=== PATIENT | female | born 1960 | race Caucasian/White ===

== ENCOUNTER 2016-10-12 08:25 | Day surgery (SDC) | payer MEDICAID ==
[~2016-10-12] VITALS: Ht 162.6 cm; Wt 97.3 kg
[~2016-10-12 08:25] MED LIST: ALBUTEROL0.83 MG/ML IH; ANTIVERT 25MG25 MG PO; ASPIRIN E.C. 8181 MG PO; ATENOLOL; CLOPIDOGREL75 MG PO; CYCLOBENZAPRINE10 MG PO; DALIRESP500 MCG PO; DICLOFENAC SOD75 MG PO; DOXYCYCLINE 10100 MG PO; FLEXERIL 1010 MG/TAB PO; FLOVENT 110MCG7.9 GM IH; FLUOXETINE20 MG PO; FLUTICASON0.05 MG/Ac NS; FUROSEMIDE40 MG PO; GABAPENTIN100 MG PO; GABAPENTIN300 MG PO; LASIX 40MG TABL40 MG PO; LEVAQUIN500 MG PO; MICRO-K 1010 MEQ PO; MIRAPEX0.25 MG PO; MIRAPEX0.5 MG PO; NEURONTIN100 MG/CAP PO; NEURONTIN300 MG/CAP PO; NITRO-DUR0.4 MG/PAT TD; NITROSTAT0.4 MG/TAB SL; NORCO 325 MG-51 TAB PO; OXY IR5 MG PO; PERCOCET 325 MG1 TA2 PO; PLAVIX 75MG TAB75 MG PO; PRILOSEC 20MG20 MG PO; PROVENTIL0.09 MG/A1 IH; PROVENTIL0.09 MG/AC IH; PROZAC 20MG20 MG PO; PROZAC40 MG PO; RT ADVAIR 228 DISKUS IH; SPIRIVA18 MCG IH; TEMOVATE0.052 TP; TENORMIN 2525 MG/TAB PO; TRANSDERM N 0.4 MG/HR TD; VOLTAREN 75 DR75 MG PO; VYTORIN 10 MG-41 TAB PO; ZITHROMAX250 M1 PO; [UNRECOGNIZED DRUG - OTHER] TP
[2016-10-12 09:56] VITALS: BP 120/76; PULSE 76; TEMP 97.7
[2016-10-12] MEDS ORDERED: PREDNISONE10 MG PO (10:00)
[2016-10-12] MEDS ORDERED: ZITHROMAX 250M250 MG PO (10:00)
[2016-10-12] MEDS ORDERED: TYLENOL 500MG500 MG PO (10:01)
[2016-10-12] MEDS ORDERED: NORCO 325 MG-51 TAB PO (10:02)
[2016-10-12] MEDS ORDERED: TENORMIN 5050 MG/TAB PO (10:03)
[2016-10-12] MEDS ORDERED: PROZAC 20MG20 MG PO (10:04)
[2016-10-12] MEDS ORDERED: RT SPIRIVA18 MCG IH (10:07)
[2016-10-12 11:00] VITALS: BP 119/91; PULSE 109; TEMP 97.7
[2016-10-12 11:15] VITALS: BP 109/67; PULSE 103
[2016-10-12 11:30] VITALS: BP 116/71; PULSE 110
== END 2016-10-12 11:30 | disposition home or self-care (01) ==
LOC: SDCO 08:25
DX: J20.9 Acute bronchitis, unspecified (principal); R06.02 Shortness of breath; R05 Cough; R09.02 Hypoxemia; J32.9 Chronic sinusitis, unspecified; Z90.2 Acquired absence of lung [part of]; J44.9 Chronic obstructive pulmonary disease, unspecified; Z85.118 Personal history of other malignant neoplasm of bronchus and lung; K21.9 Gastro-esophageal reflux disease without esophagitis; I25.10 Atherosclerotic heart disease of native coronary artery without angina pectoris; F31.9 Bipolar disorder, unspecified; E78.5 Hyperlipidemia, unspecified; I10 Essential (primary) hypertension; F17.210 Nicotine dependence, cigarettes, uncomplicated; Z79.899 Other long term (current) drug therapy; Z79.82 Long term (current) use of aspirin
CPT/HCPCS: J1644; J2704; J7120

== ENCOUNTER 2018-10-04 11:06 | Emergency (ER) | payer MEDICAID ==
[~2018-10-04] VITALS: Ht 162.6 cm; Wt 94.1 kg
[~2018-10-04 11:06] MED LIST changes: -MICRO-K 1010 MEQ PO; +PREDNISONE10 MG PO; +RT SPIRIVA18 MCG IH; +TENORMIN 5050 MG/TAB PO; +TYLENOL 500MG500 MG PO; +ZITHROMAX 250M250 MG PO
[2018-10-04 11:16] VITALS: TEMP 96.6
[2018-10-04 11:57] LABS: BASO # 0.1 (0.0-0.2); EOS # 0.2 (0.0-0.7); EOS % 1.9 % (0-4.0); GRAN # 3.9 (1.4-6.5); HEMATOCRIT 45.6 % (37.0-47.0); HEMOGLOBIN 15.1 g/dl (12.5-16.0); LYMPH # 4.2 (1.2-3.4); LYMPH % 47.8 % (20.0-51.0); MEAN CELL VOLUME 99 fl (80.0-100.0); MEAN CORPUSCULAR HEMOGLOBIN 33 pg (27.0-31.0); MEAN CORPUSCULAR HGB CONC 33 g/dl (33.0-37.0); MEAN PLATELET VOLUME 11.2 fl (7.4-10.4); MONO # 0.4 (0.1-0.6); MONO % 4.8 % (1.7-9.3); PLATELET COUNT 219 K/mm3 (130-400)
[2018-10-04 12:07] LABS: PROTHROMBIN TIME 11.6 SECONDS (9.7-12.8)
[2018-10-04 12:08] LABS: ALANINE AMINOTRANSFERASE 21 U/L (9-52); ALBUMIN 3.9 gm/dL (3.5-5.0); ALKALINE PHOSPHATASE 98 U/L (50-136); ANION GAP 7 mmol/L (7-16); AST,SGOT 27 U/L (15-37); BILIRUBIN,TOTAL 0.5 mg/dL (0.0-1.0); BLOOD UREA NITROGEN 13 mg/dL (7-17); CALCIUM 9.4 mg/dL (8.4-10.2); CARBON DIOXIDE 25 mmol/L (22-30); CHLORIDE 107 mmol/L (98-107); CREATINE KINASE 46 U/L (30-135); CREATININE, serum 0.75 mg/dL (0.52-1.25); GLUCOSE 142 mg/dL (74-106); SODIUM 139 mmol/L (137-145)
[2018-10-04 12:22] LABS: TROPONIN-I < 0.012 ng/mL (0.000-0.034)
[2018-10-04] MEDS ORDERED: MICRO-K 10 EXT10 MEQ PO (12:30)
[2018-10-04 15:15] VITALS: BP 105/84; PULSE 79
== END 2018-10-04 15:40 | disposition short-term general hospital (02) ==
LOC: COL.ER 11:06
PROVIDERS: Emergency Medicine
DX: J44.1 Chronic obstructive pulmonary disease with (acute) exacerbation (principal); F17.210 Nicotine dependence, cigarettes, uncomplicated; Z90.710 Acquired absence of both cervix and uterus; Z85.118 Personal history of other malignant neoplasm of bronchus and lung; Z79.82 Long term (current) use of aspirin
CPT/HCPCS: J2930; J7030

== ENCOUNTER 2020-03-16 07:36 | Day surgery (SDC) | payer MEDICAID ==
[2020-03-16] VITALS (10 sets, daily range): BP systolic 119–146; BP diastolic 70–84; PULSE 71–95; TEMP 98.1
[~2020-03-16] VITALS: Ht 162.7 cm; Wt 89.0 kg
[~2020-03-16 07:36] MED LIST changes: +MICRO-K 10 EXT10 MEQ PO
[2020-03-16 08:42] LABS: HEMATOCRIT 45.8 % (37.0-47.0); HEMOGLOBIN 15.1 g/dl (12.5-16.0); MEAN CELL VOLUME 98 fl (80.0-100.0); MEAN CORPUSCULAR HEMOGLOBIN 32 pg (27.0-31.0); MEAN CORPUSCULAR HGB CONC 33 g/dl (33.0-37.0); MEAN PLATELET VOLUME 11.2 fl (7.4-10.4); PLATELET COUNT 203 K/mm3 (130-400); RED BLOOD COUNT 4.67 M/mm3 (4.10-5.30)
[2020-03-16] MEDS ORDERED: ZOCOR 40MG40 MG PO (08:45)
[2020-03-16] MEDS ORDERED: NITRO-DUR0.4 MG/PAT TD (08:46)
[2020-03-16] MEDS ORDERED: ZETIA 10MG TAB10 MG PO (08:47)
[2020-03-16 08:48] LABS: PROTHROMBIN TIME 11.4 SECONDS (9.7-12.8)
[2020-03-16] MEDS ORDERED: LEVAQUIN 5500 MG/TA1 PO (08:48)
--- NOTE | 2020-03-16 09:34 | NUR ---
SEE MERGE DOCUMENTATION FOR MEDICATION ADMINISTRATION TIMES AND INTRA/POST PROCEDURE SEDATION ASSESSMENTS. RIGHT HAND BARBEAU TEST POSITIVE.
[2020-03-16 09:45] LABS: CREATININE, serum 0.67 (0.52-1.25)
--- NOTE | 2020-03-16 10:30 | NUR ---
PT TO [facility] VIA BED FROM DIETARY COOK, PT IS AWAKE AND ALERT, IN ROOM, DR DEVRIES INTO SEE PT ALSO. PT TAKES COFFEE, CALL LIGHT IN REACH
[2020-03-16] MEDS ORDERED: LIPITOR 40MG TA40 MG PO (11:03)
[2020-03-16] MEDS ORDERED: TIAZAC240 MG PO (11:04)
--- NOTE | 2020-03-16 11:35 | NUR ---
ORDERED SNACK FOR PT, WATCHES TV, DRINKS COFFEE, HAS NO C/O OR REQUESTS
--- NOTE | 2020-03-16 12:00 | NUR ---
PT TAKES TOAST AND COFFEE, SITS UP IN BED, NO C/O
--- NOTE | 2020-03-16 12:30 | NUR ---
BAND RELEASED SLOWLY, 2CC INCREMENTS OVER 20 MIN WITH NO BLEEDING, BANDAID OVER SITE WITH LIGHT COBAN, REVIEWED DISCHARGE INST. WITH PT ON CARE OF SITE, PRECAUTIONS, FOLLOWUP AT [facility] AND NEW RX BY DR DEVRIES WITH VERBAL UNDERSTANDING.
--- NOTE | 2020-03-16 13:30 | NUR ---
PT UP IN ROOM DRESSED, IV D'CD INTACT. DISCHARGED VIA W/C TO CAR WITH
== END 2020-03-16 13:30 | disposition home or self-care (01) ==
LOC: COL.CAR 07:36
PROVIDERS: Internal Medicine Cardiovascular Disease
DX: I25.10 Atherosclerotic heart disease of native coronary artery without angina pectoris (principal); I10 Essential (primary) hypertension; J44.9 Chronic obstructive pulmonary disease, unspecified; Z85.118 Personal history of other malignant neoplasm of bronchus and lung; Z90.2 Acquired absence of lung [part of]; Z87.891 Personal history of nicotine dependence; E78.2 Mixed hyperlipidemia; F43.10 Post-traumatic stress disorder, unspecified; Z90.49 Acquired absence of other specified parts of digestive tract; Z90.710 Acquired absence of both cervix and uterus; Z90.79 Acquired absence of other genital organ(s); Z90.721 Acquired absence of ovaries, unilateral; Z88.8 Allergy status to other drugs, medicaments and biological substances; Z79.82 Long term (current) use of aspirin; Z79.02 Long term (current) use of antithrombotics/antiplatelets; Z79.51 Long term (current) use of inhaled steroids
CPT/HCPCS: J1644; J2250; J3010; Q9967

== ENCOUNTER → 2021-04-28 | Outpatient (CLI) | payer MEDICAID ==
[~2021-04-28] MED LIST changes: +LEVAQUIN 5500 MG/TA1 PO; +LIPITOR 40MG TA40 MG PO; +TIAZAC240 MG PO; +ZETIA 10MG TAB10 MG PO; +ZOCOR 40MG40 MG PO
== END ==
LOC: COL.RAD 09:21
DX: C34.81 Malignant neoplasm of overlapping sites of right bronchus and lung (principal)
CPT/HCPCS: A9503

== ENCOUNTER → 2024-04-22 | Outpatient (CLI) | payer MEDICAID | LOC: MHCPAIN 09:30 | DX: M25.512 Pain in left shoulder (principal); M54.50 Low back pain, unspecified; M54.12 Radiculopathy, cervical region; M47.812 Spondylosis without myelopathy or radiculopathy, cervical region; J44.9 Chronic obstructive pulmonary disease, unspecified; F17.210 Nicotine dependence, cigarettes, uncomplicated | CPT/HCPCS: G0463 ==

== ENCOUNTER → 2024-05-08 | Outpatient (CLI) | payer MEDICAID ==
[~2024-05-08] MED LIST changes: +Iohexol 300 - 10 ML VIAL ONE; +Lidocaine PF 2% (20 MG/ML) 2 ML VIAL ONE
== END ==
LOC: MHCPAIN 08:10
DX: M54.12 Radiculopathy, cervical region (principal)
CPT/HCPCS: J1100; Q9967

== ENCOUNTER → 2024-05-27 | Outpatient (CLI) | payer MEDICAID ==
[~2024-05-27] MED LIST changes: -Iohexol 300 - 10 ML VIAL ONE; -Lidocaine PF 2% (20 MG/ML) 2 ML VIAL ONE
== END ==
LOC: MHCPAIN 09:48
DX: M47.812 Spondylosis without myelopathy or radiculopathy, cervical region (principal); M48.02 Spinal stenosis, cervical region; J44.9 Chronic obstructive pulmonary disease, unspecified; F17.210 Nicotine dependence, cigarettes, uncomplicated; M54.12 Radiculopathy, cervical region
CPT/HCPCS: G0463